=== PATIENT | female | born 1970 | race Caucasian/White ===

== ENCOUNTER 2020-06-01 20:56 | Emergency (ER) | payer MEDICARE, OTHER, MEDICAID ==
[~2020-06-01] VITALS: Ht 165.1 cm; Wt 105.5 kg
[2020-06-01 21:07] VITALS: BP 185/111
--- NOTE | 2020-06-01 21:25 | ED Integumentary General ---
General Chief Complaint: Skin/Wound Problems Stated Complaint: FACIAL BURNING Nursing Triage Note: pt with co facial burning. states she put a new dog flea collar on her pet earleir today but washed hands after. pt states she tried cold compress for the burning but no cream History of Present Illness Date Seen by Provider: Jun 01, 2020 Time Seen by Provider: 21:05 Initial Comments Complacently flee collar on one of her parents and began having redness heat burning in her face has had no problems with other brand flea collars that this was something new also has had problems with steroids in the past was on high doses of oral steroids and caused problems with anxiety and mental disorder she has baseline bipolar and seems to that diagnosis. No fever no chills no new foods no other issues Timing/Duration: this evening Severity: mild Location: face Associated Symptoms: blisters, change in skin texture; No headache; rash, tingling Allergies and Home Medications Patient Home Medication List Home Medication List Reviewed: Yes Review of Systems Review of Systems Constitutional: No chills, No fever EENTM: No ear pain, No mouth pain, No mouth swelling Respiratory: No cough, No short of breath, No wheezing Cardiovascular: No chest pain Gastrointestinal: No abdominal pain, No nausea, No vomiting Skin: change in color, rash Past Odjehgg-Adlfvc-Ihklep Hx Past Med/Social Hx: Reviewed Nursing Past Med/Soc Hx Patient Social History Alcohol Use: Denies Use Recreational Drug Use: No Smoking Status: Current Everyday Smoker 2nd Hand Smoke Exposure: No Recent Foreign Travel: No Contact w/Someone Who Travel: No Recent Infectious Disease Expo: No Recent Hopitalizations: No Physical Abuse: No Sexual Abuse: No Mistreated: No Fear: No Seasonal Allergies Seasonal Allergies: No Past Medical History Surgeries: Yes Abdominal, Appendectomy, Gallbladder, Hysterectomy Respiratory: No Cardiac: Yes Hypertension Neurological: No Genitourinary: No Gastrointestinal: No Musculoskeletal: No Endocrine: No HEENT: No Cancer: No Psychosocial: Yes Bipolar, Depression Integumentary: No Blood Disorders: No Physical Exam Vital Signs Vital Signs - First Documented 06/01/20 21:07 Temp 36.4 Pulse 76 Resp 16 B/P (MAP) 185/111 (135) Pulse Ox 99 O2 Delivery Room Air Capillary Refill : Less Than 3 Seconds General Appearance: WD/WN, mild distress HEENT: PERRL/EOMI, normal ENT inspection, TMs normal, pharynx normal, other (face shows mild erythema and a masklike distribution around the nose and mouth) Neck: supple; No lymphadenopathy (R), No lymphadenopathy (L) Cardiovascular: regular rate, rhythm, no murmur Respiratory: lungs clear, normal breath sounds Extremities: normal inspection Neurologic/Psychiatric: no motor/sensory deficits, alert, normal mood/affect Skin: normal color, warm/dry, other (mild erythematous rash around the facial mouth was slight thickening of the skin.) Skin Problem Location: face Skin Problem Character: erythema, rash, thickening Progress/Results/Core Measures Results/Orders Vital Signs/I&O 06/01/20 21:07 Temp 36.4 Pulse 76 Resp 16 B/P (MAP) 185/111 (135) Pulse Ox 99 O2 Delivery Room Air Blood Pressure Mean: 135 Departure Impression Primary Impression: Facial dermatitis Disposition: 01 HOME, SELF-CARE Condition: Stable Departure-Patient Inst. Patient Instructions: Dermatitis Add. Discharge Instructions: Use aloe vera cream on the face his Benadryl every 6 hours [id number] follow with problems All discharge instructions reviewed with patient and/or family. Voiced understanding. JESSE MICHEL JR, MD Jun 01, 2020 21:24
[2020-06-01] MEDS ORDERED: diphenhydrAMINE 25 MG TAB (BENADRYL) PO ONE (21:30)
--- OUTSIDE RECORDS SUMMARY | 2020-06-01 23:16 | XMS REPORT | Continuity of Care Document ---
Author Organization Unknown Address Unknown Phone Unavailable Allergies There is no data. Medications There is no data. Problems There is no data. Procedures There is no data. Results There is no data. Encounters ACCT No. Visit Date/Time Discharge Status Pt. Type Provider Facility Loc./Unit Complaint [id number] 06/01/2020 20:57:00 020 21:31:00 DIS Emergency ANAND IGLESIAS, JESSE Mcgraw Via [facility] ER FS FACIAL BURNING
== END 2020-06-01 21:31 | disposition home or self-care (01) ==
LOC: ER FS 20:57
DX: L30.9 Dermatitis, unspecified (principal); F17.200 Nicotine dependence, unspecified, uncomplicated
CPT/HCPCS: 99283

== ENCOUNTER 2020-07-14 05:56 | Outpatient (CLI) | payer MEDICAID, MEDICARE, OTHER ==
[~2020-07-14] VITALS: Ht 165 cm; Wt 105.4 kg
[2020-07-14] MEDS ORDERED: BUSP30TA2 PO (10:44)
[2020-07-14] MEDS ORDERED: HYDR-3820 PO (10:44)
[2020-07-14] MEDS ORDERED: BACL10TA PO (10:44)
[2020-07-14] MEDS ORDERED: COLE1TAB PO (10:44)
[2020-07-14] MEDS ORDERED: LEVO50TA6 PO (10:44)
[2020-07-14] MEDS ORDERED: PREG225C PO (10:44)
[2020-07-14] MEDS ORDERED: SIMV40TA25 PO (10:44)
[2020-07-14] MEDS ORDERED: CITA40TA19 PO (10:44)
[2020-07-14] MEDS ORDERED: TRAZ-227 PO (10:44)
[2020-07-14] MEDS ORDERED: ESTR0.5T PO (10:44)
[2020-07-14] MEDS ORDERED: PRAZ1CAP2 PO (10:44)
[2020-07-14] MEDS ORDERED: [UNRECOGNIZED DRUG - CODE] PO (10:44)
[2020-07-14] MEDS ORDERED: MTP25TSR PO (10:44)
[2020-07-15] MEDS ORDERED: HYDR-3817 PO (16:50)
== END 2020-07-14 11:46 | disposition home or self-care (01) ==
LOC: PREOP 05:56
PROVIDERS: ATTEND Surgery
DX: Z01.818 Encounter for other preprocedural examination (principal)

== ENCOUNTER 2020-07-15 12:40 | Day surgery (SDC) | payer MEDICAID, MEDICARE, OTHER ==
--- NOTE | 2020-07-14 18:02 | HISTORY AND PHYSICAL ---
DATE OF SERVICE: DATE OF ADMISSION: 07/15/2020. ADMITTING PRIMARY CARE PHYSICIAN: Enrique Brower DO HISTORY OF PRESENT ILLNESS: The patient is a 50-year-old female referred over to us for a palpable mass along the right axilla. She does have a history of Hodgkin's lymphoma diagnosed in 1992 and underwent MOAP chemotherapy at that time. Since that time, she states that she has done well. She does state that she did develop a lump in the left axilla and underwent an excisional biopsy, which was found to be benign. At this time around, she noticed the lesion of the right axilla approximately 2 weeks ago. She does not report any other lymphadenopathy in other lymph node basins. She also does not report any systemic symptoms of night sweats, fatigue or weight loss. PAST MEDICAL HISTORY: Bipolar disorder, history of panic attacks, right hip avascular necrosis, fibromyalgia, irritable bowel syndrome, hypothyroid, degenerative joint disease and chronic kidney disease. PAST SURGICAL HISTORY: Partial hysterectomy in 2001, laparoscopic cholecystectomy in 2005, breast reduction in 2003, bilateral plantar fascia release in 2003, bilateral knee arthroscopy and right hip surgery. ALLERGIES: PENICILLIN, ERYTHROMYCIN, VANCOMYCIN, SEROQUEL, CYMBALTA, PREDNISONE CAUSES SYMPTOMS RELATED TO BIPOLAR DISORDER. MEDICATIONS: Simvastatin 40 mg daily, potassium 20 mEq daily, oxycodone p.r.n., Movantik 25 mg daily, levothyroxine 75 mcg daily, baclofen 10 mg daily, nystatin to the affected skin daily, rizatriptan 10 mg p.r.n., topiramate 50 mg daily, Nasonex p.r.n., Diflucan 200 mg twice a week, Lyrica 225 mg daily, montelukast 10 mg daily, Combivent q.6 hours p.r.n., metoprolol ER 25 mg daily, loratadine 10 mg daily, estradiol 0.5 mg daily, meclizine 25 mg p.r.n., buspirone 30 mg b.i.d., trazodone 100 mg each day at bedtime, Abilify 10 mg daily and citalopram 40 mg daily. SOCIAL HISTORY: Positive smoke 10 pack years. Negative alcohol. FAMILY HISTORY: Maternal grandmother colon cancer. Mother, diabetes and hypertension. Father, hypertension. Sister, diabetes and hypertension. Brother, myocardial infarction, age 42. REVIEW OF SYSTEMS: She is not experiencing any shortness of breath or difficulty breathing. No chest pain, palpitations or diaphoresis. No nausea or vomiting. No diarrhea or constipation. No night sweats, loss of appetite nor weight loss. All other review of systems negative. PHYSICAL EXAMINATION: VITAL SIGNS: Stable. Blood pressure is 157/90. Current weight is 222.4 pounds at 5 feet 5 inches. GENERAL: A well-nourished female, in no acute distress. CHEST: Clear. Good breath sounds bilaterally. HEART: Regular and no murmurs. EXTREMITIES: No lower extremity edema, negative Homans sign. HEENT: No scleral icterus. NECK: No cervical lymphadenopathy. ABDOMEN: Soft, nontender and nondistended. SKIN: Along the right axilla is a palpable lesion along the axillary lymph node basin, which is slightly larger than 1 cm in size and easily movable. This is the only palpable lesion identified within the axilla with no matted nodes. ASSESSMENT AND PLAN: A 50-year-old female with a right axillary lymphadenopathy with history of Hodgkin's lymphoma. We will proceed with scheduling her for a right axillary lymph node biopsy under MAC as well as local anesthesia as soon as possible. Job ID: [id number] DocumentID: [id number] Dictated Date: 07/13/2020 15:32:37 Rod Tape Operator Date: 07/13/2020 15:49:21 Dictated By: MARILEE MISHRA MD
[2020-07-15] VITALS (7 sets, daily range): BP systolic 122–142; BP diastolic 71–97
[~2020-07-15] VITALS: Ht 165 cm; Wt 105.4 kg
[~2020-07-15 12:40] MED LIST: BACL10TA PO; BUSP30TA2 PO; CITA40TA19 PO; COLE1TAB PO; ESTR0.5T PO; HYDR-3820 PO; LEVO50TA6 PO; MTP25TSR PO; PRAZ1CAP2 PO; PREG225C PO; SIMV40TA25 PO; TRAZ-227 PO; [UNRECOGNIZED DRUG - CODE] PO
[2020-07-15] MEDS ORDERED: BUP/EPI 0.5% 1:200,000 (MARCAINE) 10ML VIAL IJ ONE (12:41)
--- NOTE | 2020-07-15 12:54 | Progress Note-Pre Operative ---
Pre-Operative Progress Note H&P Reviewed The H&P was reviewed, patient examined and no changes noted. Date Seen by Provider: Jul 15, 2020 Time Seen by Provider: 12:50 Date H&P Reviewed: Jul 15, 2020 Time H&P Reviewed: 12:50 Pre-Operative Diagnosis: right axilla lymphadenopathy MARILEE MISHRA MD Jul 15, 2020 12:54
[2020-07-15] MEDS ORDERED: HYDROcodone/APAP 5 MG/325 MG (LORTAB) TAB PO ONE (13:00)
[2020-07-15] MEDS ORDERED: ONDANSETRON 4 MG/2 ML (SDV) Z0FRAN IVP PRN ×2 (13:00→16:15)
[2020-07-15] MEDS ORDERED: ACETAMINOPHEN 325 MG TABLET PO PRN (13:00)
[2020-07-15] MEDS ORDERED: morphine INJ 10 MG/ML 1ML (SYR OR VIAL) IVP PRN ×2 (13:00)
[2020-07-15] MEDS ORDERED: LACTATED RINGERS 1,000 ML IV PRN (13:03)
[2020-07-15] MEDS ORDERED: fentaNYL INJECTION 100 MCG/2 ML AMP ONE (13:44)
[2020-07-15] MEDS ORDERED: LIDOCAINE PF 2% 5 ML (XYLOCAINE) VIAL ONE (13:44)
[2020-07-15] MEDS ORDERED: proPOfol 200 MG/20 ML (DIPRIVAN) VIAL IV ONE ×2 (13:44→15:16)
[2020-07-15] MEDS ORDERED: MIDAZOLAM 2 MG/2 ML (VERSED) VIAL ONE (13:45)
[2020-07-15] MEDS ORDERED: LEVOFLOXACIN 500 MG/100 ML IV 100 ML IV ONE (14:00)
[2020-07-15] MEDS ORDERED: MIDAZOLAM 2 MG/2 ML (VERSED) VIAL IV ONE (14:15)
[2020-07-15] MEDS ORDERED: HYDROmorphone 2 MG/ML VIAL (DILAUDID) ONE (15:44)
--- NOTE | 2020-07-15 15:48 | Progress Note-Post Operative ---
Post-Operative Progess Note Surgeon (s)/Electric Spot Welder (s) Surgeon MARILEE MISHRA MD Electric Spot Welder: yanna mcbride BINDER STRIPPER HAND Pre-Operative Diagnosis right axilla lymphadenopathy Post-Operative Diagnosis same Procedure & Operative Findings Date of Procedure 07/15/20 Procedure Performed/Findings right axillary node biopsy Anesthesia Type MAC with local Estimated Blood Loss Estimated blood loss (mL): minimal Specimens/Packing Specimens Removed right axillary node MARILEE MISHRA MD Jul 15, 2020 15:48
--- NOTE | 2020-07-15 16:04 | Anesthesia-General Post-Op ---
MAC Patient Condition Mental Status/LOC: Same as Preop Cardiovascular: Satisfactory Nausea/Vomiting: Absent Respiratory: Satisfactory Pain: Controlled Complications: Absent Post Op Complications Complications None Follow Up Care/Instructions Patient Instructions None needed. Anesthesiology Discharge Order Discharge Order Patient is doing well, no complaints, stable vital signs, no apparent adverse anesthesia problems. No complications reported per nursing. MELANIE JJ CRNA Jul 15, 2020 16:04
[2020-07-15] MEDS ORDERED: morphine INJ 10 MG/ML 1ML (SYR OR VIAL) IVP ONE (16:15)
[2020-07-15] MEDS ORDERED: HYDR-3817 PO (16:50)
--- NOTE | 2020-07-16 03:30 | OPERATIVE REPORT ---
DATE OF SERVICE: 07/15/2020 ATTENDING PRIMARY CARE PHYSICIAN: Enrique Brower DO PREOPERATIVE DIAGNOSIS: Right axillary lymphadenopathy. POSTOPERATIVE DIAGNOSIS: Right axillary lymphadenopathy. PROCEDURE: Right deep axillary lymph node biopsy. SURGEON: Genevieve Mishra MD FIRE HAZARD INSPECTOR: Benja Pinto APRN ANESTHESIA: Monitored anesthesia care with local. ESTIMATED BLOOD LOSS: Minimal. FINDINGS: Mild lymphadenopathy of what appeared to be a solitary lymph node. DISPOSITION: The patient tolerated the procedure well. INDICATIONS: The patient is a 50-year-old female referred over to us for a lesion on the right axilla. She has a history of Hodgkin's lymphoma diagnosed in 1992 and underwent MOAP chemotherapy at that time. Since that time, she states she has done well. She does state that she did develop a lump in the left axilla and underwent an excisional biopsy, which was found to be benign. At this time, she noticed a lesion of the right axilla 2 weeks ago, which has persisted. She does not report any lymphadenopathy in any other lymph node basins. She also does not report any systemic symptoms of night sweats, fatigue or any weight loss. DESCRIPTION OF PROCEDURE: The patient was brought to the operating room, laid supine on the table. After adequate IV pain and sedative medications and monitored anesthesia care, the axilla and chest were prepped and draped in standard surgical fashion. A 1% lidocaine with epinephrine was used to anesthetize overlying skin to the anterior axillary hairline. A transverse skin incision along the glabellar lines was then made using a 15 blade. Subcutaneous tissue was then dissected using electrocautery. The clavipectoral fascia was then opened using electrocautery in a vertical manner. We then proceeded with blunt dissection of the axillary lymph node basin what appeared to be a small solitary node was identified and no other lymphadenopathy noted. This was then excised using electrocautery with visualization of good hemostasis. This was then sent to pathology. The fascia was then closed using 3-0 Vicryl interrupted sutures. Skin was closed using 4-0 Monocryl running subcuticular suture. Wound was then cleaned and covered with Dermabond. The patient tolerated the procedure well. We will send the specimen to pathology for further evaluation. She may resume all her normal activities and to keep the area clean and dry as possible. Job ID: [id number] DocumentID: [id number] Dictated Date: 07/15/2020 15:53:38 Bottle Label Inspector Date: 07/16/2020 02:44:54 Dictated By: GENEVIEVE MISHRA MD
== END 2020-07-15 17:25 | disposition home or self-care (01) ==
LOC: SDC 12:40
PROVIDERS: ATTEND Surgery
DX: R59.0 Localized enlarged lymph nodes (principal); F31.9 Bipolar disorder, unspecified; F41.0 Panic disorder [episodic paroxysmal anxiety]; M79.7 Fibromyalgia; E03.9 Hypothyroidism, unspecified; I12.9 Hypertensive chronic kidney disease with stage 1 through stage 4 chronic kidney disease, or unspecified chronic kidney disease; N18.9 Chronic kidney disease, unspecified; F17.210 Nicotine dependence, cigarettes, uncomplicated; K58.9 Irritable bowel syndrome, unspecified; Z88.0 Allergy status to penicillin; Z88.1 Allergy status to other antibiotic agents; Z88.8 Allergy status to other drugs, medicaments and biological substances; Z79.899 Other long term (current) drug therapy; Z79.890 Hormone replacement therapy; Z92.21 Personal history of antineoplastic chemotherapy; Z85.71 Personal history of Hodgkin lymphoma
CPT/HCPCS: 84703; 87081; 88305; 88307; 88341; 88342; 94664

== ENCOUNTER 2021-01-15 18:13 | Emergency (ER) | payer MEDICARE, MEDICAID ==
[~2021-01-15] VITALS: Ht 164 cm; Wt 112.0 kg
[~2021-01-15 18:13] MED LIST changes: +HYDR-3817 PO
[2021-01-15 18:15] VITALS: BP 165/91
--- NOTE | 2021-01-15 18:19 | ED Headache ---
General Chief Complaint: Head/Cervical Problems Stated Complaint: MIGRAINE Source: patient Exam Limitations: no limitations History of Present Illness Date Seen by Provider: Jan 15, 2021 Time Seen by Provider: 18:18 Initial Comments 50-year-old female presents with headache. She reports she has a history of migraines and this is similar to it. Report pain starts in left base of her neck and comes up far into her pentecostalism forehead. She complains of some photop hobia some nausea and vomiting which is similar to her previous headache history. She reports that Toradol and Zofran usually resolve it. She denies any fevers chills cough chest pain or other systemic complaints Allergies and Home Medications Allergies Coded Allergies: Penicillins (Verified Allergy, Severe, ANAPHYLAXIS, 07/15/20) duloxetine (Verified Allergy, Severe, UNABLE TO FUNCTION, 07/15/20) erythromycin base (Verified Allergy, Severe, ANAPHYLAXIS, 07/15/20) quetiapine (Verified Allergy, Severe, UNABLE TO FUNCTION, 07/15/20) vancomycin (Verified Allergy, Severe, ANAPHYLAXIS, 07/15/20) latex (Verified Allergy, Mild, RASH, 07/15/20) Home Medications Baclofen 10 Mg Tablet, 10 MG PO TID PRN for SPASMS, (Reported) Buspirone HCl 30 Mg Tablet, 30 MG PO DAILY, (Reported) Citalopram Hydrobromide 40 Mg Tablet, 40 MG PO DAILY, (Reported) Colestipol HCl 1 Gm Tablet, 1 GM PO BID, (Reported) Estradiol 0.5 Mg Tablet, 0.5 MG PO DAILY, (Reported) Hydrocodone/Acetaminophen 1 Each Tablet, 1 EACH PO Q6H PRN for PAIN-MODERATE (5- 7), (Reported) Hydrocodone/Acetaminophen 1 Each Tablet, 1-2 EACH PO Q6H PRN for PAIN-SEVERE (8- 10) Prescribed by: MATA MORTENSEN on 07/15/20 1650 Levothyroxine Sodium 50 Mcg Tablet, 50 MCG PO DAILY, (Reported) Metoprolol Succinate 25 Mg Tab.er.24h, 25 MG PO HS, (Reported) Ondansetron 4 Mg Tab.rapdis, 4 MG PO Q6H PRN for NAUSEA/VOMITING Prescribed by: ROSALES CROW on 01/15/21 1846 Oxycodone HCl/Acetaminophen 1 Each Tablet, 1 EACH PO DAILY, (Reported) Prazosin HCl 1 Mg Capsule, 1 MG PO HS, (Reported) Pregabalin 225 Mg Capsule, 225 MG PO BID, (Reported) Simvastatin 40 Mg Tablet, 40 MG PO HS, (Reported) Trazodone HCl 100 Mg Tablet, 100 MG PO HS, (Reported) Patient Home Medication List Home Medication List Reviewed: Yes Review of Systems Review of Systems Constitutional: No chills, No fever Eyes: Photophobia Ears, Nose, Mouth, Throat: no symptoms reported Respiratory: No cough, No short of breath Cardiovascular: No chest pain, No palpitations Gastrointestinal: No abdominal pain; nausea, vomiting Musculoskeletal: see HPI Skin: no symptoms reported Psychiatric/Neurological: Headache Past Yyppjvy-Sqrygh-Pdfawk Hx Past Med/Social Hx: Reviewed Nursing Past Med/Soc Hx Patient Social History Type Used: Cigarettes 2nd Hand Smoke Exposure: Yes Recent Hopitalizations: No Immunizations Up To Date Date of Influenza Vaccine: Aug 25, 2019 Seasonal Allergies Seasonal Allergies: Yes (MILD) Past Medical History Surgeries: Yes (BREAST REDUCTION, PLANTAR FACIITITS RELEASE, TUMOR FROM EAR, CONIZATIONS, ) Gallbladder, Hysterectomy, Orthopedic Respiratory: Yes Asthma Currently Using CPAP: No Currently Using BIPAP: No Cardiac: Yes Hypertension Neurological: No Neuropathy STOREPERSON History: Hysterectomy Sexually Transmitted Disease: No HIV/AIDS: No Genitourinary: Yes (CHRONIC KIDNEY DISEASE) UTI-Chronic Gastrointestinal: Yes Chronic Constipation, Chronic Diarrhea, Irritable Bowel Musculoskeletal: Yes Arthritis, Fibromyalgia, Chronic Back Pain Endocrine: Yes Hypothyroidsim HEENT: No (GLASSES) Loss of Vision: Denies Hearing Impairment: Denies Cancer: Yes (HODGKINS DISEASE-1992) Did You Recieve Any Treatments: Yes What Type of Treatment Did You: Chemotherapy Psychosocial: Yes Bipolar, Depression Integumentary: No Blood Disorders: No Adverse Reaction/Blood Tranf: No (HAS HAD BLOOD WITH NO REACTION) Physical Exam Vital Signs Vital Signs - First Documented 01/15/21 18:15 Temp 36.7 Pulse 96 Resp 16 B/P (MAP) 165/91 (115) Pulse Ox 98 O2 Delivery Room Air Capillary Refill : Height, Weight, BMI Height: '" Weight: lbs. oz. kg; 38.71 BMI Method: General Appearance: mild distress HEENT: PERRL/EOMI Neck: tender lateral (Left lateral) Cardiovascular: normal peripheral pulses, regular rate, rhythm Respiratory: chest non-tender, lungs clear, normal breath sounds Gastrointestinal: non tender, soft Extremities: normal range of motion, non-tender Psychiatric: alert, oriented x 3 Crainal Nerves: normal hearing, normal speech, PERRL Coordination/Gait: normal gait Motor/Sensory: no motor deficit, no sensory deficit Skin: normal color, warm/dry Progress/Results/Core Measures Results/Orders My Orders Orders - ROSALES CROW DO Ketorolac Injection (Toradol Injection) (01/15/21 18:23) Orphenadrine Inj (Ed Only) (Norflex Inje (01/15/21 18:23) Ondansetron Injection (Zofran Injectio (01/15/21 18:30) Medications Given in ED Current Medications Medications Dose Ordered Sig/Melissa Route Start Time Stop Time Status Last Admin Dose Admin Ondansetron HCl 4 mg ONCE ONCE IM 01/15/21 18:30 01/15/21 18:31 DC 01/15/21 18:38 4 MG Vital Signs/I&O 01/15/21 01/15/21 18:15 18:49 Temp 36.7 36.7 Pulse 96 96 Resp 16 16 B/P (MAP) 165/91 (115) Pulse Ox 98 98 O2 Delivery Room Air Room Air Departure Impression Primary Impression: Tension type headache Qualified Codes: G44.209 - Tension-type headache, unspecified, not intractable Disposition: 01 HOME, SELF-CARE Condition: Stable Departure-Patient Inst. Referrals: LILLIAN JONES DO (PCP/Family) Primary Care Physician Patient Instructions: Home Headache Remedies, Tension Headache, Migraines (DC) Add. Discharge Instructions: Follow-up with your primary care provider if your headaches become more frequent. All discharge instructions reviewed with patient and/or family. Voiced understanding. Scripts Ondansetron (Ondansetron Odt) 4 Mg Tab.rapdis 4 MG PO Q6H PRN for NAUSEA/VOMITING, #20 TAB 0 Refills Prov: ROSALES CROW DO 01/15/21 ROSALES CROW DO Jan 15, 2021 18:18
[2021-01-15] MEDS ORDERED: KETOROLAC 60 MG/2 ML VIAL IM STA (18:23)
[2021-01-15] MEDS ORDERED: ORPHENADRINE 60 MG/2 ML (NORFLEX) AMP (ED ONLY) IM STA (18:23)
[2021-01-15] MEDS ORDERED: ONDANSETRON 4 MG/2 ML (SDV) Z0FRAN IM ONE (18:30)
[2021-01-15] MEDS ORDERED: ONDA4TAB11 PO (18:46)
== END 2021-01-15 18:50 | disposition home or self-care (01) ==
LOC: EDUNIT# 18:13 → ER FS 18:14
DX: G44.209 Tension-type headache, unspecified, not intractable (principal); G89.29 Other chronic pain; M54.9 Dorsalgia, unspecified; I10 Essential (primary) hypertension; E03.9 Hypothyroidism, unspecified; F32.9 Major depressive disorder, single episode, unspecified; Z88.0 Allergy status to penicillin; Z88.1 Allergy status to other antibiotic agents; Z91.040 Latex allergy status; Z88.8 Allergy status to other drugs, medicaments and biological substances; Z85.71 Personal history of Hodgkin lymphoma; Z77.22 Contact with and (suspected) exposure to environmental tobacco smoke (acute) (chronic); Z79.890 Hormone replacement therapy; Z79.891 Long term (current) use of opiate analgesic
CPT/HCPCS: 99284